=== PATIENT | female | born 1955 ===

== ENCOUNTER 2019-06-03 05:45 | Day surgery (SDC) | payer OTHER | END 2019-06-03 10:15 | disposition home or self-care (01) | LOC: AMB-ENDOS 05:45 | DX: K57.30 Diverticulosis of large intestine without perforation or abscess without bleeding (principal); K64.1 Second degree hemorrhoids; Z12.11 Encounter for screening for malignant neoplasm of colon ==

== ENCOUNTER 2019-07-26 12:45 | Inpatient (IN) | payer OTHER ==
[~2019-07-26] VITALS: Ht 152.4 cm; Wt 83.5 kg
[2019-07-26] MEDS ORDERED: HYZAAR 100-12.1 EACH PO (12:55)
[2019-07-26] MEDS ORDERED: TENORMIN25 MG PO (12:55)
[2019-08-09] MEDS ORDERED: TENORMIN25 MG PO (15:21)
[2019-08-09] MEDS ORDERED: HYZAAR 100-12.1 EACH PO (15:25)
[2019-08-09] MEDS ORDERED: BENZONATATE100 MG PO (15:26)
[2019-08-09] MEDS ORDERED: PRESGEN B LIQU473 ML PO (15:27)
[2019-08-09] MEDS ORDERED: GUAIFENESIN AC C5 ML PO (15:28)
[2019-08-09] MEDS ORDERED: GABAPENTIN300 MG PO (15:28)
[2019-08-09] MEDS ORDERED: INTESTINEX680 M1 PO (15:28)
[2019-08-09] MEDS ORDERED: MUCINEX600 MG PO (15:28)
[2019-08-09] MEDS ORDERED: CEFDINIR300 MG PO (15:30)
== END 2019-08-09 18:45 | disposition home or self-care (01) | DRG 329 ==
LOC: O/R 08-02 06:58 → SURG 08-02 06:58 → O/R 08-02 07:00 → SURG 08-02 18:25
PROVIDERS: ADMIT Colon & Rectal Surgery
PROC: 0DJD8ZZ Inspection of Lower Intestinal Tract, Via Natural or Artificial Opening Endoscopic (ICD-10-PCS; 2019-08-02)
PROC: 0DTN4ZZ Resection of Sigmoid Colon, Percutaneous Endoscopic Approach (ICD-10-PCS; principal; 2019-08-02 07:00)
PROC: 3E0F7GC Introduction of Other Therapeutic Substance into Respiratory Tract, Via Natural or Artificial Opening (ICD-10-PCS; 2019-08-08)
DX: K57.20 Diverticulitis of large intestine with perforation and abscess without bleeding (principal); B37.1 Pulmonary candidiasis; J95.89 Other postprocedural complications and disorders of respiratory system, not elsewhere classified; J98.11 Atelectasis; K58.1 Irritable bowel syndrome with constipation; I11.9 Hypertensive heart disease without heart failure; E66.09 Other obesity due to excess calories

== ENCOUNTER 2020-10-05 06:47 | Day surgery (SDC) | payer OTHER ==
[~2020-10-05 06:47] MED LIST: BENZONATATE100 MG PO; CEFDINIR300 MG PO; GABAPENTIN300 MG PO; GUAIFENESIN AC C5 ML PO; HYZAAR 100-12.1 EACH PO; INTESTINEX680 M1 PO; MUCINEX600 MG PO; PRESGEN B LIQU473 ML PO; TENORMIN25 MG PO
== END 2020-10-05 13:00 | disposition home or self-care (01) ==
LOC: AMB-ENDOS 06:47
PROVIDERS: ATTEND Colon & Rectal Surgery
DX: D12.3 Benign neoplasm of transverse colon (principal); K64.1 Second degree hemorrhoids; Z20.822 Contact with and (suspected) exposure to COVID-19; Z12.11 Encounter for screening for malignant neoplasm of colon